=== PATIENT | female | born 1965 | race Caucasian/White ===

== ENCOUNTER 2019-09-06 12:04 | Emergency (ER) | payer MEDICARE, MEDICAID ==
[~2019-09-06] VITALS: Ht 149.9 cm; Wt 83.0 kg
[~2019-09-06 12:04] MED LIST: ALBU8.5H8 IH; BACL10TA2 PO; BUPR100T16 PO; CEFU500T66 PO; CLON-527 PO; ENAL20TA75 PO; GABA-532 PO; HYDR-4383 PO; PANT-47 PO; PROP20TA6 PO; SERT100T10 PO; SPIIN INH; SYMBICORT 160-4.5 IH
[2019-09-06] MEDS ORDERED: ipratropium/albuterol 3ml nebule NEB ONE (12:30)
[2019-09-06] MEDS ORDERED: predniSONE 20 mg tablet PO ONE (12:30)
[2019-09-06] MEDS ORDERED: AZIT-21 PO (13:16)
[2019-09-06] MEDS ORDERED: PRED20TA PO (13:16)
[2019-09-06] MEDS ORDERED: ALB0.5UD IH (13:16)
[2019-09-06 13:22] VITALS: BP 148/98
== END 2019-09-06 13:24 | disposition home or self-care (01) ==
LOC: ER 12:06
DX: J44.1 Chronic obstructive pulmonary disease with (acute) exacerbation (principal); F17.200 Nicotine dependence, unspecified, uncomplicated; E78.00 Pure hypercholesterolemia, unspecified; I10 Essential (primary) hypertension; F12.90 Cannabis use, unspecified, uncomplicated; Z88.0 Allergy status to penicillin; Z88.2 Allergy status to sulfonamides; Z88.5 Allergy status to narcotic agent; Z79.899 Other long term (current) drug therapy
CPT/HCPCS: 71045; 93005; 94640; 99284; J7512; 94760

== ENCOUNTER 2023-03-13 13:51 | Emergency (ER) | payer MEDICARE, MEDICAID ==
[~2023-03-13] VITALS: Ht 149.9 cm; Wt 71.9 kg
[~2023-03-13 13:51] MED LIST changes: +ALBU8.5H17 IH; -ALBU8.5H8 IH; +BUPR-122 PO; -BUPR100T16 PO; +SERT-434 PO; -SERT100T10 PO
[2023-03-13 14:16] VITALS: PULSE 86; RESP 18; TEMP 97.8; O2SAT 95
[2023-03-13 14:21] VITALS: BP 186/111
[2023-03-13 14:51] LABS: BASOPHILS # (AUTO) 0.1 X10'3 (0-0.2); BASOPHILS % (AUTO) 0.7 % (0-1); EOSINOPHILS # (AUTO) 0.7 X10'3 (0-0.9); EOSINOPHILS % (AUTO) 6.6 % (0-6); HEMATOCRIT 45.6 % (35.0-45.0); HEMOGLOBIN 15.1 g/dl (12.0-16.0); LYMPHOCYTES # (AUTO) 2.4 X10'3 (1.1-4.8); LYMPHOCYTES % (AUTO) 21.8 % (21-51); MEAN CORPUSCULAR HEMOGLOBIN 28.4 PG (27.0-31.0); MEAN CORPUSCULAR HGB CONC 33.1 g/dL (33.0-36.5); MEAN CORPUSCULAR VOLUME 85.8 FL (78-98); MEAN PLATELET VOLUME 7.5 FL (7.4-10.4); MONOCYTES # (AUTO) 0.9 X10'3 (0-0.9); MONOCYTES % (AUTO) 8.1 % (2-12); NEUTROPHILS % (AUTO) 62.8 % (42-75); PLATELET COUNT 315 X10'3 (140-440); RED BLOOD COUNT 5.31 X10'6 (4.20-5.60); RED CELL DISTRIBUTION WIDTH 13.2 % (11.5-14.5); WHITE BLOOD COUNT 11.2 X10'3 (4.5-11.0)
[2023-03-13 15:05] LABS: ALANINE AMINOTRANSFERASE 18 U/L (12-78); ALBUMIN 3.7 G/DL (3.4-5.0); ALKALINE PHOSPHATASE 127 IU/L (46-116); ANION GAP 6 (8-16); ASPARTATE AMINO TRANSFERASE 14 U/L (10-37); BILIRUBIN,TOTAL 0.3 MG/DL (0.1-1.0); BLOOD UREA NITROGEN 9 MG/DL (7-18); BUN/CREATININE RATIO 14.3 (10.0-20.0); CALCIUM 9.1 MG/DL (8.5-10.1); CHLORIDE 104 MMOL/L (99-107); CREATININE 0.63 MG/DL (0.40-0.90); GLUCOSE 99 MG/DL (70-104); POTASSIUM 4.1 MMOL/L (3.5-5.1); SODIUM 138 MMOL/L (135-145); TOTAL PROTEIN 7.3 G/DL (6.4-8.2); eCRCL 67 ML/MIN; eGFR > 90 ML/MIN
[2023-03-13 15:12] LABS: PRO BRAIN NATRIURETIC PEPTIDE 150 PG/ML (0-125)
== END 2023-03-13 19:41 | disposition left against medical advice (07) ==
LOC: ER 13:52
DX: R06.02 Shortness of breath (principal); R05.9 Cough, unspecified; R09.81 Nasal congestion; Z53.21 Procedure and treatment not carried out due to patient leaving prior to being seen by health care provider
CPT/HCPCS: 36415; 71045; 80053; 83880; 84484; 85025; 93005; 99281

== ENCOUNTER 2023-07-13 13:59 | Emergency (ER) | payer MEDICARE, MEDICAID ==
[~2023-07-13] VITALS: Ht 149.9 cm; Wt 78.6 kg
[~2023-07-13 13:59] MED LIST changes: +ALBU18HF2 INH; -ALBU8.5H17 IH; -BACL10TA2 PO; +BUDE10.2 INH; -BUPR-122 PO; +BUPR150T27 PO; -CEFU500T66 PO; -CLON-527 PO; +CLON1TAB94 PO; -ENAL20TA75 PO; +FLUT16SP26 INH; -GABA-532 PO; -HYDR-4383 PO; +IPRA3AMP9 NEB; +LACT1CAP74 PO; +LORA10TA7 PO; +LOSA50TA64 PO; +LOVA40TA2 PO; -PANT-47 PO; +PANT40TA54 PO; +PRED10TA PO; -SPIIN INH; -SYMBICORT 160-4.5 IH
[2023-07-13 14:03] VITALS: BP 160/107; PULSE 108; RESP 19; O2SAT 93
[2023-07-13 14:30] LABS: BASOPHILS % (AUTO) 0.6 % (0-1); EOSINOPHILS # (AUTO) 0.6 X10'3 (0-0.9); EOSINOPHILS % (AUTO) 7.5 % (0-6); HEMATOCRIT 42.4 % (35.0-45.0); HEMOGLOBIN 14.2 g/dl (12.0-16.0); LYMPHOCYTES # (AUTO) 1.6 X10'3 (1.1-4.8); LYMPHOCYTES % (AUTO) 19.4 % (21-51); MEAN CORPUSCULAR HEMOGLOBIN 28.2 PG (27.0-31.0); MEAN CORPUSCULAR HGB CONC 33.6 g/dL (33.0-36.5); MEAN CORPUSCULAR VOLUME 83.9 FL (78-98); MEAN PLATELET VOLUME 7.4 FL (7.4-10.4); MONOCYTES # (AUTO) 0.8 X10'3 (0-0.9); MONOCYTES % (AUTO) 9.7 % (2-12); NEUTROPHILS # (AUTO) 5.1 X10'3 (1.8-7.7); NEUTROPHILS % (AUTO) 62.8 % (42-75); PLATELET COUNT 239 X10'3 (140-440); RED BLOOD COUNT 5.05 X10'6 (4.20-5.60); RED CELL DISTRIBUTION WIDTH 13.7 % (11.5-14.5); WHITE BLOOD COUNT 8.2 X10'3 (4.5-11.0)
[2023-07-13 14:48] LABS: ALBUMIN 3.6 G/DL (3.4-5.0); ANION GAP 10 (8-16); BLOOD UREA NITROGEN 15 MG/DL (7-18); BUN/CREATININE RATIO 18.5 (10.0-20.0); CALCIUM 8.4 MG/DL (8.5-10.1); CHLORIDE 109 MMOL/L (99-107); CREATININE 0.81 MG/DL (0.40-0.90); GLUCOSE 121 MG/DL (70-104); SODIUM 144 MMOL/L (135-145); TOTAL CARBON DIOXIDE 25.1 MMOL/L (24-32); eCRCL 52 ML/MIN; eGFR 73 ML/MIN
[2023-07-13 17:21] VITALS: TEMP 98.1
== END 2023-07-13 17:22 | disposition left against medical advice (07) ==
LOC: ER 14:00
DX: R06.02 Shortness of breath (principal); Z53.21 Procedure and treatment not carried out due to patient leaving prior to being seen by health care provider
CPT/HCPCS: 36415; 71045; 80048; 84484; 85025; 93005; 99281

== ENCOUNTER 2023-07-26 05:11 | Inpatient (IN) | payer MEDICARE, MEDICAID ==
[2023-07-26] VITALS (18 sets, daily range): BP systolic 135–167; BP diastolic 84–87; PULSE 86–114; RESP 16–30; TEMP 97.5; O2SAT 89–98
[~2023-07-26] VITALS: Ht 149.9 cm; Wt 70.0 kg
[2023-07-26] MEDS: albuterol 2.5 MG/3 ML nebule CONTNEB PRN (05:23)
[2023-07-26] MEDS: methylPREDNISolone sod succ 125mg/2ml vial IV ONE (05:28)
[2023-07-26] MEDS: LORazepam 2 mg/ml vial IV ONE (05:37)
[2023-07-26 06:06] LABS: BASOPHILS # (AUTO) 0.2 X10'3 (0-0.2); BASOPHILS % (AUTO) 0.9 % (0-1); HEMATOCRIT 44.9 % (35.0-45.0); HEMOGLOBIN 14.8 g/dl (12.0-16.0); LYMPHOCYTES # (AUTO) 4.5 X10'3 (1.1-4.8); MEAN CORPUSCULAR HEMOGLOBIN 28.3 PG (27.0-31.0); MEAN CORPUSCULAR HGB CONC 33.1 g/dL (33.0-36.5); MEAN CORPUSCULAR VOLUME 85.7 FL (78-98); MONOCYTES # (AUTO) 2.1 X10'3 (0-0.9); MONOCYTES % (AUTO) 7.4 % (2-12); NEUTROPHILS # (AUTO) 19.4 X10'3 (1.8-7.7); NEUTROPHILS % (AUTO) 68.7 % (42-75); PLATELET COUNT 456 X10'3 (140-440); RED BLOOD COUNT 5.24 X10'6 (4.20-5.60)
[2023-07-26 06:11] LABS: ALBUMIN 3.7 G/DL (3.4-5.0); ANION GAP 1 (8-16); BLOOD UREA NITROGEN 15 MG/DL (7-18); BUN/CREATININE RATIO 16.9 (10.0-20.0); CALCIUM 8.3 MG/DL (8.5-10.1); CHLORIDE 104 MMOL/L (99-107); CREATININE 0.89 MG/DL (0.40-0.90); GLUCOSE 226 MG/DL (70-104); SODIUM 139 MMOL/L (135-145); TOTAL CARBON DIOXIDE 34.1 MMOL/L (24-32); eCRCL 62 ML/MIN; eGFR 65 ML/MIN
[2023-07-26 06:18] LABS: WHITE BLOOD COUNT 28.2 X10'3 (4.5-11.0)
[2023-07-26 06:31] LABS: PRO BRAIN NATRIURETIC PEPTIDE 333 PG/ML (0-125)
[2023-07-26] MEDS: normal saline 1000ML IV soln IVB ONE (06:32)
[2023-07-26] MEDS: azithromycin/NS 500mg/250ml 250 ML IV ONE (06:33)
[2023-07-26 07:13] LABS: PLATELET ESTIMATE INCREASED; TOTAL CELLS COUNTED 100
[2023-07-26] MEDS ORDERED: acetaminophen 325mg tablet PO PRN (07:15)
[2023-07-26] MEDS ORDERED: potassium Cl 20 mEq SR tablet PO PRN ×2 (07:15)
[2023-07-26] MEDS ORDERED: magnesium 4gm in 100ml NS 100 ML IV PRN (07:15)
[2023-07-26] MEDS ORDERED: ondansetron/PF 4mg/2ml inj IV PRN (07:15)
[2023-07-26] MEDS ORDERED: magnesium 2GM in 50ml NS 50 ML IV PRN (07:15)
[2023-07-26] MEDS ORDERED: potassium Cl 40MEQ/1/2NS 520ml 520 ML IV PRN (07:15)
[2023-07-26] MEDS ORDERED: magnesium Cl slow-release 64mg tablet PO PRN (07:15)
[2023-07-26 07:52] LABS: ABG BASE EXCESS -2.8 mmol/L (-2.0-2.0); ABG HCO3 27.6 mmol/L (22.0-26.0); ABG OXYGEN SATURATION 97.7 % (94-97); ABG PH (T) 7.178 (7.350-7.450); ABG PO2 (T) 117.6 mmHg (75.0-100.0); ALLEN'S TEST POSITIVE; FCOHb 0.2 % (0.0-3.9); FHHb 2.3 % (0.0-5.0); FLOW 9 L/min; FMetHb 0.4 % (0.0-1.5); FO2Hb 97.1 % (94-97); MODE MASK - SIMPLE; PATIENT TEMPERATURE 37.1; TOTAL HEMOGLOBIN 14.3 G/dl (12.0-16.0)
[2023-07-26] MEDS: albuterol 2.5 MG/3 ML nebule NEB SCH (08:00)
[2023-07-26] MEDS: methylPREDNISolone sod succ 125mg/2ml vial IV SCH (09:30)
[2023-07-26] MEDS: levoFLOXACIN-Levaquin 500mg/D5 100 ML IV SCH (09:31)
[2023-07-26] MEDS: heparin, porcine 5000 units/ml vial SQ SCH (09:31)
[2023-07-26] MEDS: normal saline 1000ml 1,000 ML IV SCH (09:39)
[2023-07-26 10:04] LABS: ABG BASE EXCESS -2.3 mmol/L (-2.0-2.0); ABG HCO3 26.5 mmol/L (22.0-26.0); ABG OXYGEN SATURATION 96.8 % (94-97); ABG PCO2 (T) 64.4 mmHg (32.0-45.0); ABG PH (T) 7.233 (7.350-7.450); ABG PO2 (T) 98.7 mmHg (75.0-100.0); ALLEN'S TEST POSITIVE; FCOHb 0.3 % (0.0-3.9); FHHb 3.2 % (0.0-5.0); FMetHb 0.4 % (0.0-1.5); FO2Hb 96.1 % (94-97); MODE MASK - BIPAP; PATIENT TEMPERATURE 37.1; RESPIRATORY RATE 14 b/min; TIDAL VOLUME 487 mL; TOTAL HEMOGLOBIN 13.6 G/dl (12.0-16.0)
[2023-07-26] MEDS ORDERED: albuterol 2.5 MG/3 ML nebule NEB PRN (10:10)
[2023-07-26] MEDS: ipratropium/albuterol 3ml nebule NEB SCH (11:43)
[2023-07-26] MEDS ORDERED: nicotine 14mg patch - 24hr TD SCH (20:30)
[2023-07-26] MEDS ORDERED: temazepam 15mg capsule PO PRN (21:00)
[2023-07-26] MEDS: acetaminophen 325mg tablet PO PRN (21:04)
[2023-07-27] VITALS (20 sets, daily range): BP systolic 141–179; BP diastolic 93–103; PULSE 81–103; RESP 16–33; TEMP 97.4–98.3; O2SAT 92–97
[2023-07-27 07:22] LABS: BASOPHILS % (AUTO) 0.4 % (0-1); EOSINOPHILS % (AUTO) 0.3 % (0-6); HEMATOCRIT 38.6 % (35.0-45.0); HEMOGLOBIN 12.9 g/dl (12.0-16.0); LYMPHOCYTES # (AUTO) 2.1 X10'3 (1.1-4.8); MEAN CORPUSCULAR HEMOGLOBIN 28.1 PG (27.0-31.0); MEAN CORPUSCULAR HGB CONC 33.3 g/dL (33.0-36.5); MEAN CORPUSCULAR VOLUME 84.3 FL (78-98); MEAN PLATELET VOLUME 7.7 FL (7.4-10.4); MONOCYTES # (AUTO) 0.9 X10'3 (0-0.9); MONOCYTES % (AUTO) 7.9 % (2-12); NEUTROPHILS # (AUTO) 8.4 X10'3 (1.8-7.7); NEUTROPHILS % (AUTO) 73.4 % (42-75); PLATELET COUNT 248 X10'3 (140-440); RED BLOOD COUNT 4.58 X10'6 (4.20-5.60); RED CELL DISTRIBUTION WIDTH 13.6 % (11.5-14.5); WHITE BLOOD COUNT 11.4 X10'3 (4.5-11.0)
[2023-07-27 07:35] LABS: ALANINE AMINOTRANSFERASE 14 U/L (12-78); ALBUMIN 3.2 G/DL (3.4-5.0); ALBUMIN/GLOBULIN RATIO 0.9 (1.1-1.5); ALKALINE PHOSPHATASE 91 IU/L (46-116); ANION GAP 3 (8-16); ASPARTATE AMINO TRANSFERASE 14 U/L (10-37); BILIRUBIN,TOTAL 0.3 MG/DL (0.1-1.0); BLOOD UREA NITROGEN 14 MG/DL (7-18); BUN/CREATININE RATIO 21.2 (10.0-20.0); CALCIUM 8.5 MG/DL (8.5-10.1); CHLORIDE 105 MMOL/L (99-107); CREATININE 0.66 MG/DL (0.40-0.90); GLUCOSE 128 MG/DL (70-104); POTASSIUM 3.7 MMOL/L (3.5-5.1); SODIUM 140 MMOL/L (135-145); TOTAL CARBON DIOXIDE 32.2 MMOL/L (24-32); TOTAL PROTEIN 6.9 G/DL (6.4-8.2); eCRCL 63 ML/MIN; eGFR > 90 ML/MIN
[2023-07-27] MEDS: losartan 50mg tablet PO SCH (09:01)
[2023-07-27] MEDS: pantoprazole 40mg Tablet.DR PO SCH (09:02)
[2023-07-27] MEDS: sertraline 50mg tablet PO SCH (09:02)
[2023-07-27] MEDS: propranolol 10mg tablet PO SCH (09:02)
[2023-07-27] MEDS: atorvastatin 10mg tablet PO SCH (09:02)
[2023-07-27] MEDS: buPROPion SR 150mg tablet PO SCH (09:02)
[2023-07-28] VITALS (18 sets, daily range): BP systolic 126–159; BP diastolic 89–112; PULSE 78–104; RESP 14–21; TEMP 97–98.4; O2SAT 92–100
[2023-07-28 07:45] LABS: BASOPHILS # (AUTO) 0.1 X10'3 (0-0.2); EOSINOPHILS # (AUTO) 0.1 X10'3 (0-0.9); EOSINOPHILS % (AUTO) 0.5 % (0-6); HEMATOCRIT 40.4 % (35.0-45.0); HEMOGLOBIN 13.4 g/dl (12.0-16.0); LYMPHOCYTES # (AUTO) 2.4 X10'3 (1.1-4.8); LYMPHOCYTES % (AUTO) 21.2 % (21-51); MEAN CORPUSCULAR HGB CONC 33.1 g/dL (33.0-36.5); MEAN CORPUSCULAR VOLUME 84.7 FL (78-98); MEAN PLATELET VOLUME 7.8 FL (7.4-10.4); MONOCYTES # (AUTO) 0.9 X10'3 (0-0.9); MONOCYTES % (AUTO) 8.3 % (2-12); NEUTROPHILS # (AUTO) 7.7 X10'3 (1.8-7.7); PLATELET COUNT 237 X10'3 (140-440); RED BLOOD COUNT 4.77 X10'6 (4.20-5.60); RED CELL DISTRIBUTION WIDTH 13.8 % (11.5-14.5); WHITE BLOOD COUNT 11.2 X10'3 (4.5-11.0)
[2023-07-28 08:21] LABS: ALANINE AMINOTRANSFERASE 18 U/L (12-78); ALBUMIN 3.1 G/DL (3.4-5.0); ALBUMIN/GLOBULIN RATIO 0.8 (1.1-1.5); ALKALINE PHOSPHATASE 89 IU/L (46-116); ANION GAP 7 (8-16); BILIRUBIN,TOTAL 0.3 MG/DL (0.1-1.0); BLOOD UREA NITROGEN 16 MG/DL (7-18); CALCIUM 8.6 MG/DL (8.5-10.1); CHLORIDE 103 MMOL/L (99-107); GLUCOSE 97 MG/DL (70-104); SODIUM 139 MMOL/L (135-145); TOTAL CARBON DIOXIDE 29.5 MMOL/L (24-32); eCRCL 84 ML/MIN; eGFR > 90 ML/MIN
[2023-07-28 08:22] LABS: ASPARTATE AMINO TRANSFERASE 20 U/L (10-37)
[2023-07-28] MEDS: clonazePAM 1mg tablet PO PRN (13:09)
[2023-07-29] VITALS (10 sets, daily range): BP systolic 128–133; BP diastolic 84–94; PULSE 73–94; RESP 12–19; TEMP 97.1–98.1; O2SAT 91–95
[2023-07-29 07:25] LABS: BASOPHILS # (AUTO) 0.1 X10'3 (0-0.2); BASOPHILS % (AUTO) 0.5 % (0-1); EOSINOPHILS # (AUTO) 0.1 X10'3 (0-0.9); EOSINOPHILS % (AUTO) 0.5 % (0-6); HEMATOCRIT 41.9 % (35.0-45.0); HEMOGLOBIN 14.3 g/dl (12.0-16.0); LYMPHOCYTES # (AUTO) 2.7 X10'3 (1.1-4.8); LYMPHOCYTES % (AUTO) 20.7 % (21-51); MEAN CORPUSCULAR HEMOGLOBIN 28.5 PG (27.0-31.0); MEAN CORPUSCULAR HGB CONC 34.1 g/dL (33.0-36.5); MEAN CORPUSCULAR VOLUME 83.5 FL (78-98); MEAN PLATELET VOLUME 7.9 FL (7.4-10.4); MONOCYTES # (AUTO) 1.2 X10'3 (0-0.9); MONOCYTES % (AUTO) 9.5 % (2-12); NEUTROPHILS # (AUTO) 8.9 X10'3 (1.8-7.7); NEUTROPHILS % (AUTO) 68.8 % (42-75); PLATELET COUNT 267 X10'3 (140-440); RED BLOOD COUNT 5.02 X10'6 (4.20-5.60); RED CELL DISTRIBUTION WIDTH 13.8 % (11.5-14.5); WHITE BLOOD COUNT 12.9 X10'3 (4.5-11.0)
[2023-07-29 07:34] LABS: ALANINE AMINOTRANSFERASE 12 U/L (12-78); ALBUMIN 3.3 G/DL (3.4-5.0); ALBUMIN/GLOBULIN RATIO 0.8 (1.1-1.5); ALKALINE PHOSPHATASE 86 IU/L (46-116); ANION GAP 7 (8-16); ASPARTATE AMINO TRANSFERASE 10 U/L (10-37); BILIRUBIN,TOTAL 0.3 MG/DL (0.1-1.0); BLOOD UREA NITROGEN 20 MG/DL (7-18); BUN/CREATININE RATIO 37.7 (10.0-20.0); CHLORIDE 103 MMOL/L (99-107); CREATININE 0.53 MG/DL (0.40-0.90); GLUCOSE 95 MG/DL (70-104); POTASSIUM 3.6 MMOL/L (3.5-5.1); SODIUM 138 MMOL/L (135-145); TOTAL CARBON DIOXIDE 28.2 MMOL/L (24-32); TOTAL PROTEIN 7.2 G/DL (6.4-8.2); eCRCL 79 ML/MIN; eGFR > 90 ML/MIN
[2023-07-29] MEDS: levoFLOXACIN 500mg tablet PO SCH (10:32)
[2023-07-29] MEDS ORDERED: PANT40TA54 PO (16:12)
[2023-07-29] MEDS ORDERED: ALBU2.5V7 NEB (16:12)
[2023-07-29] MEDS ORDERED: PRED10TA23 PO (16:12)
[2023-07-29] MEDS ORDERED: NEBU1KIT3 MC (16:18)
== END 2023-07-29 16:34 | disposition home or self-care (01) | DRG 189 ==
LOC: ER 05:11 → ED HOLD 07:19 → PCU 3S 19:10
PROVIDERS: ADMIT Internal Medicine; ATTEND Internal Medicine
PROC: 5A09357 Assistance with Respiratory Ventilation, Less than 24 Consecutive Hours, Continuous Positive Airway Pressure (ICD-10-PCS; principal; 2023-07-26)
DX: J96.02 Acute respiratory failure with hypercapnia (principal); J44.1 Chronic obstructive pulmonary disease with (acute) exacerbation; I10 Essential (primary) hypertension; K21.9 Gastro-esophageal reflux disease without esophagitis; E78.00 Pure hypercholesterolemia, unspecified; Z20.822 Contact with and (suspected) exposure to COVID-19; F32.A Depression, unspecified; Z80.8 Family history of malignant neoplasm of other organs or systems; Z80.0 Family history of malignant neoplasm of digestive organs; Z87.891 Personal history of nicotine dependence; Z88.0 Allergy status to penicillin; Z88.2 Allergy status to sulfonamides; Z88.5 Allergy status to narcotic agent; Z79.899 Other long term (current) drug therapy
CPT/HCPCS: 36415; 36600; 71045; 80048; 80053; 82803; 83605; 83880; 84145; 84484; 85007; 85018; 85025; 85651; 87040; 87081; 87502; 87503; 87811; 93005; 94640; 94660; 94664; 94668; 94760; 96365; 96375; 97116; 97161; 97530; 99285; A4615; A4620; A7015; G0378; J0456; J1644; J1956; J2060; J2930; J7030

== ENCOUNTER 2024-02-14 16:16 | Emergency (ER) | payer MEDICARE, MEDICAID ==
[~2024-02-14] VITALS: Ht 149.9 cm; Wt 79.8 kg
[~2024-02-14 16:16] MED LIST changes: -BUDE10.2 INH; +DILT30TA5 PO; -LACT1CAP74 PO; +PANT-47 PO; -PANT40TA54 PO; -PRED10TA PO
[2024-02-14 17:18] LABS: BASOPHILS # (AUTO) 0.1 X10'3 (0-0.2); BASOPHILS % (AUTO) 0.5 % (0-1); EOSINOPHILS # (AUTO) 0.5 X10'3 (0-0.9); HEMATOCRIT 37.9 % (35.0-45.0); HEMOGLOBIN 12.3 g/dl (12.0-16.0); LYMPHOCYTES # (AUTO) 1.9 X10'3 (1.1-4.8); LYMPHOCYTES % (AUTO) 19.2 % (21-51); MEAN CORPUSCULAR HEMOGLOBIN 26.1 PG (27.0-31.0); MEAN CORPUSCULAR HGB CONC 32.5 g/dL (33.0-36.5); MEAN CORPUSCULAR VOLUME 80.4 FL (78-98); MEAN PLATELET VOLUME 7.9 FL (7.4-10.4); MONOCYTES # (AUTO) 0.9 X10'3 (0-0.9); MONOCYTES % (AUTO) 9.1 % (2-12); NEUTROPHILS # (AUTO) 6.6 X10'3 (1.8-7.7); NEUTROPHILS % (AUTO) 66.2 % (42-75); PLATELET COUNT 272 X10'3 (140-440); RED BLOOD COUNT 4.71 X10'6 (4.20-5.60); RED CELL DISTRIBUTION WIDTH 15.3 % (11.5-14.5)
[2024-02-14 17:32] LABS: ALBUMIN 3.4 G/DL (3.4-5.0); ANION GAP 4 (8-16); BLOOD UREA NITROGEN 12 MG/DL (7-18); BUN/CREATININE RATIO 15.4 (10.0-20.0); CALCIUM 8.3 MG/DL (8.5-10.1); CHLORIDE 103 MMOL/L (99-107); CREATININE 0.78 MG/DL (0.40-0.90); POTASSIUM 3.9 MMOL/L (3.5-5.1); SODIUM 138 MMOL/L (135-145); TOTAL CARBON DIOXIDE 30.8 MMOL/L (24-32); eCRCL 54 ML/MIN; eGFR 76 ML/MIN
[2024-02-14 18:04] LABS: PRO BRAIN NATRIURETIC PEPTIDE 88 PG/ML (0-125)
[2024-02-14 18:32] LABS: GLUCOSE 119 MG/DL (70-104)
[2024-02-14] MEDS: ipratropium/albuterol 3ml nebule NEB PRN ×2 (21:29→23:53)
[2024-02-14 21:32] VITALS: PULSE 97; RESP 18; O2SAT 95
[2024-02-14 21:35] VITALS: PULSE 92; RESP 18; O2SAT 100
[2024-02-14] MEDS: normal saline 1000ml 1,000 ML IV ONE (21:57)
[2024-02-14] MEDS: methylPREDNISolone sod succ 125mg/2ml vial IV ONE (21:57)
[2024-02-14 22:00] LABS: BASOPHILS # (AUTO) 0.1 X10'3 (0-0.2); BASOPHILS % (AUTO) 0.5 % (0-1); EOSINOPHILS # (AUTO) 0.5 X10'3 (0-0.9); EOSINOPHILS % (AUTO) 4.6 % (0-6); HEMATOCRIT 35.2 % (35.0-45.0); HEMOGLOBIN 11.4 g/dl (12.0-16.0); LYMPHOCYTES # (AUTO) 2.3 X10'3 (1.1-4.8); LYMPHOCYTES % (AUTO) 22.6 % (21-51); MEAN CORPUSCULAR HEMOGLOBIN 25.9 PG (27.0-31.0); MEAN CORPUSCULAR HGB CONC 32.4 g/dL (33.0-36.5); MEAN CORPUSCULAR VOLUME 79.8 FL (78-98); MEAN PLATELET VOLUME 7.5 FL (7.4-10.4); MONOCYTES # (AUTO) 0.9 X10'3 (0-0.9); NEUTROPHILS # (AUTO) 6.3 X10'3 (1.8-7.7); NEUTROPHILS % (AUTO) 63.3 % (42-75); PLATELET COUNT 228 X10'3 (140-440); RED BLOOD COUNT 4.41 X10'6 (4.20-5.60); RED CELL DISTRIBUTION WIDTH 15.2 % (11.5-14.5)
[2024-02-14 22:12] LABS: ALANINE AMINOTRANSFERASE 26 U/L (12-78); ALBUMIN 3.4 G/DL (3.4-5.0); ALBUMIN/GLOBULIN RATIO 1.1 (1.1-1.5); ALKALINE PHOSPHATASE 108 IU/L (46-116); ANION GAP 6 (8-16); ASPARTATE AMINO TRANSFERASE 21 U/L (10-37); BILIRUBIN,TOTAL 0.3 MG/DL (0.1-1.0); BLOOD UREA NITROGEN 11 MG/DL (7-18); BUN/CREATININE RATIO 15.1 (10.0-20.0); CALCIUM 8.4 MG/DL (8.5-10.1); CHLORIDE 102 MMOL/L (99-107); CREATININE 0.73 MG/DL (0.40-0.90); GLUCOSE 83 MG/DL (70-104); SODIUM 137 MMOL/L (135-145); TOTAL CARBON DIOXIDE 28.8 MMOL/L (24-32); TOTAL PROTEIN 6.4 G/DL (6.4-8.2); eCRCL 57 ML/MIN; eGFR 82 ML/MIN
[2024-02-14 22:15] LABS: POTASSIUM 3.8 MMOL/L (3.5-5.1)
[2024-02-14 23:53] VITALS: TEMP 97.6
[2024-02-14 23:55] VITALS: PULSE 102; RESP 18; O2SAT 97
[2024-02-15] VITALS: PULSE 99; RESP 18; O2SAT 99
[2024-02-15] MEDS ORDERED: PRED50TA PO (00:35)
[2024-02-15] MEDS ORDERED: IPRA3AMP31 NEB (00:35)
[2024-02-15 00:46] VITALS: BP 124/90; PULSE 102; RESP 14; O2SAT 95
== END 2024-02-15 00:49 | disposition home or self-care (01) ==
LOC: ER 16:17
DX: J44.1 Chronic obstructive pulmonary disease with (acute) exacerbation (principal); E78.00 Pure hypercholesterolemia, unspecified; I10 Essential (primary) hypertension; J45.909 Unspecified asthma, uncomplicated; F32.A Depression, unspecified; Z88.0 Allergy status to penicillin; Z88.2 Allergy status to sulfonamides; Z88.8 Allergy status to other drugs, medicaments and biological substances; Z79.899 Other long term (current) drug therapy
CPT/HCPCS: 36415; 71046; 80048; 80053; 83605; 83880; 85025; 94640; 96361; 96374; 99284; J2919; J7030; Z7610

== ENCOUNTER 2024-05-04 12:08 | Emergency (ER) | payer MEDICARE, MEDICAID ==
[~2024-05-04] VITALS: Ht 149.9 cm; Wt 77.0 kg
[~2024-05-04 12:08] MED LIST changes: +GUAI600T45 PO; -IPRA3AMP9 NEB; +PRED10TA PO; -PROP20TA6 PO
[2024-05-04 12:13] VITALS: TEMP 98
[2024-05-04] MEDS: traMADol 50MG tablet PO ONE (15:16)
[2024-05-04] MEDS: LIDOcaine 5% patch TP STA (15:19)
[2024-05-04] MEDS ORDERED: TRAM50TA2 PO (15:26)
[2024-05-04 15:41] VITALS: BP 120/88; PULSE 103; RESP 20; O2SAT 95
== END 2024-05-04 15:47 | disposition home or self-care (01) ==
LOC: ER 12:09
DX: G89.29 Other chronic pain (principal); M54.59 Other low back pain; F32.A Depression, unspecified; I10 Essential (primary) hypertension; E78.00 Pure hypercholesterolemia, unspecified; J45.909 Unspecified asthma, uncomplicated; J44.9 Chronic obstructive pulmonary disease, unspecified; Z88.0 Allergy status to penicillin; Z88.2 Allergy status to sulfonamides; Z88.5 Allergy status to narcotic agent; Z79.899 Other long term (current) drug therapy
CPT/HCPCS: 72100; 99284

== ENCOUNTER 2024-07-23 09:57 | Outpatient (CLI) | payer MEDICARE, MEDICAID | END 2024-07-23 23:59 | disposition home or self-care (01) | LOC: RAD 09:57 | PROVIDERS: ATTEND Physician Assistant | DX: Z12.2 Encounter for screening for malignant neoplasm of respiratory organs (principal); J43.9 Emphysema, unspecified; Z87.891 Personal history of nicotine dependence; J98.4 Other disorders of lung; J98.11 Atelectasis | CPT/HCPCS: 71271 ==

== ENCOUNTER 2024-09-12 12:39 | Emergency (ER) | payer MEDICARE, MEDICAID ==
[~2024-09-12] VITALS: Ht 149.9 cm; Wt 80.2 kg
[2024-09-12 12:47] VITALS: TEMP 99
--- NOTE | 2024-09-12 15:18 | Physician Documentation ---
History of Present Illness ~ Chief Complaint: Hand pain Stated Complaint: L HAND SWELLING Time Seen by MD: 13:42 Primary Medical Doctor: YINKA HERBERT The patient is Seen today with complaints of swelling and redness and warmth of her left wrist that started just yesterday. Patient denies any injury to the wrist and denies any history of gout. Patient states she feels like she got bit by something. Patient has no other concern or complaint at this time. She states the left wrist is very painful. She denies any fevers or chills. Tetanus within 5 years: Yes (2022) Medication Reconciliation Allergies: Coded Allergies: Penicillins (Verified Allergy, Unknown, 05/04/24) Sulfa (Sulfonamide Antibiotics) (Verified Adverse Reaction, Unknown, UPSET STOMACH, 05/04/24) morphine (Verified Adverse Reaction, Unknown, MIGRAINE, 05/04/24) Scheduled Bupropion HCl (Bupropion Xl), 1 TAB PO QAM, (Reported) Clindamycin HCl (Clindamycin HCl), 1 CAP PO Q8H Clonazepam (Clonazepam), 1 TAB PO BID Diltiazem HCl (Diltiazem HCl), 1 TAB PO BID, (Reported) Guaifenesin (Mucinex), 600 MG PO Q12H Ibuprofen (Ibuprofen), 1 TAB PO Q8H Loratadine (Loratadine), 1 TAB PO DAILY, (Reported) Losartan Potassium (Losartan Potassium), 1 TAB PO BID, (Reported) Lovastatin (Lovastatin), 1 TAB PO DAILY, (Reported) Pantoprazole Sodium (PROTONIX tablet), 1 TAB PO DAILY, (Reported) Prednisone (Prednisone), 0 PO DAILY Sertraline HCl (Sertraline HCl), 200 MG PO DAILY, (Reported) Scheduled PRN Albuterol Sulfate (Ventolin Hfa), 2 PUFFS INH Q4H PRN for SOB or wheezing, (Reported) Fluticasone Propionate (Fluticasone Propionate), 1 PUFF INH Q12H PRN for SOB or wheezing, (Reported) Hydrocodone Bit/Acetaminophen 5/325 MG ([place] 5/325 MG), 1 TAB PO Q12H PRN PRN for pain Past Medical History Past Medical History: High Cholesterol, Hypertension, Asthma, COPD, Depression Past Surgical History: no surgical history Patient History: FH: pancreatic cancer (Mother and sister ) FH: throat cancer (Brother) Alcohol Use: Rarely Drug Use: none Lives with: Family Lives In: Home Review of Systems Constitutional: Denies: chills, fever, weakness Eyes: Denies: pain, blurred vision ENT: Denies: ear pain, nose pain, throat pain, mouth pain Respiratory: Denies: cough, shortness of breath Cardiovascular: Denies: chest pain, palpitations Gastrointestinal: Denies: abdominal pain, nausea, vomiting Genitourinary: Denies: burning, dysuria Female Genitalia: Denies: vaginal discharge, pelvic pain Neurological: Denies: headache, dizziness Musculoskeletal: Denies: pain, swelling Integumentary: Denies: rash, lesions Allergic/Immunologic: Denies: hives, itching Hematologic/Lymphatic: Denies: no symptoms reported Psychiatric: Denies: depression, anxiety Physical Exam Vital Signs: Temperature: 99.0, Source: Oral, Heart Rate: 112, Respiratory Rate: 16, BP: 140/109, Pulse Oximetry: 94, Weight: 80.200 Oxygen Flow Rate: 0 Physical Exam General: Awake and Alert, no acute distress. HEENT: Conjunctiva pink, Sclera clear, Mucus Membranes moist. Neck: Supple without masses and tenderness. Resp: Unlabored. Lungs clear to auscultation bilaterally. Heart: Regular Rate and rhythm, normal S1 and S2 without murmur, rub or gallop. Musculoskeletal: Patient on exam has warmth and erythema on dorsum of patient's left wrist with tenderness to palpation. I do not appreciate any streaking or any infection progressing proximally. Patient is neurovascularly intact distally. Motor function is intact distally. Patient does have decreased range of motion of the left wrist due to pain. Extremities: No cyanosis,clubbing or edema. Skin: Warm and Dry. Progress Results/Orders Results/Orders Completed Orders - DILMA MORALES PAC Cbc/Diff (09/12/24 15:14) BMP (09/12/24 15:14) Indomethacin Capsule (Indocin Capsule) (09/12/24 15:15) Clindamycin Capsule (Cleocin Capsule) (09/12/24 15:15) Uric Acid (09/12/24 15:17) Ondansetron Disint. Tablet (Zofran Odt T (09/12/24 16:41) Medications Received in ER Medications (Trade) Dose Ordered Sig/Ayaan Route PRN Reason Start Time Stop Time Status Last Admin Dose Admin (Indocin capsule) 50 mg ONCE STAT PO 09/12/24 15:15 09/12/24 15:19 DC 09/12/24 15:43 50 MG (Cleocin capsule) 300 mg ONCE STAT PO 09/12/24 15:15 09/12/24 15:19 DC 09/12/24 15:43 300 MG (Zofran ODT tablet) 8 mg ONCE STAT PO 09/12/24 16:41 09/12/24 16:42 DC 09/12/24 16:50 8 MG Vital Signs 09/12/24 12:47 Temp 99.0 Pulse 112 Resp 16 B/P (MAP) 140/109 Pulse Ox 94 O2 Flow Rate 0 Laboratory Tests Test 09/12/24 15:24 White Blood Count 11.2 H Red Blood Count 5.09 Hemoglobin 12.2 Hematocrit 38.1 Mean Corpuscular Volume 74.8 L Mean Corpuscular Hemoglobin 24.0 L Mean Corpuscular Hemoglobin Concent 32.1 L Red Cell Distribution Width 16.5 H Platelet Count 315 Mean Platelet Volume 7.4 Neutrophils (%) (Auto) 71.9 Lymphocytes (%) (Auto) 14.9 L Monocytes (%) (Auto) 9.4 Eosinophils (%) (Auto) 3.0 Basophils (%) (Auto) 0.8 Neutrophils # (Auto) 8.1 H Lymphocytes # (Auto) 1.7 Monocytes # (Auto) 1.1 H Eosinophils # (Auto) 0.3 Basophils # (Auto) 0.1 CBC Comment Sodium Level 138 Potassium Level 4.1 Chloride Level 104 Carbon Dioxide Level 25.5 Anion Gap 9 Blood Urea Nitrogen 11 Creatinine 0.63 Estimated GFR/1.73 m2 > 90 BUN/Creatinine Ratio 17.5 Glucose Level 94 Uric Acid 3.9 Calcium Level 8.8 Albumin 3.6 Chemistry Comments Medical Decision Making Findings The patient is Seen today with complaints of swelling and redness and warmth of her left wrist that started just yesterday. Patient denies any injury to the wrist and denies any history of gout. Patient states she feels like she got bit by something. Patient has no other concern or complaint at this time. She states the left wrist is very painful. She denies any fevers or chills. Patient was given dose of indomethacin 50 mg by mouth and clindamycin 300 mg by mouth in the ED today. Prescriptions for clindamycin and Tylenol and ibuprofen and [place] five sent to patient's pharmacy to be used as directed. Patient will monitor left wrist very closely and will return to ED with any fevers or worsening of swelling or redness or pain for re-evaluation. Departure Disposition: 01 HOME / SELF CARE / HOMELESS Impression: Primary Impression: Cellulitis of left wrist Condition: Stable Discharge Instructions: Cellulitis, Adult, [id number] Additional Instructions: Patient was given dose of indomethacin 50 mg by mouth and clindamycin 300 mg by mouth in the ED today. Prescriptions for clindamycin and Tylenol and ibuprofen and [place] five sent to patient's pharmacy to be used as directed. Patient will monitor left wrist very closely and will return to ED with any fevers or worsening of swelling or redness or pain for re-evaluation. Referrals: NO PRIMARY CARE PROVIDER (PCP) Prescriptions ONDANSETRON ODT 4mg tablet (ONDANSETRON ODT) 4 Mg Tab.rapdis 4 MG PO BID for 7 Days, #14 TAB Prov: DILMA MORALES 09/12/24 Ibuprofen (Ibuprofen) 600 Mg Tablet 1 TAB PO Q8H for pain for 10 Days, #30 TAB 0 Refills with food Prov: DILMA MORALES 09/12/24 Hydrocodone Bit/Acetaminophen 5/325 MG ([place] 5/325 MG) 5 Mg/325 Mg Tablet 1 TAB PO Q12H PRN PRN for pain for 5 Days, #10 TAB Prov: DILMA MORALES 09/12/24 Clindamycin HCl (Clindamycin HCl) 300 Mg Capsule 1 CAP PO Q8H for 10 Days, #30 CAP Prov: DILMA MORALES 09/12/24 Signature Scribe Signature: No scribe Attestation: No scribe DILMA MORALES September 12, 2024 15:18
[2024-09-12 15:43] LABS: BASOPHILS # (AUTO) 0.1 X10'3 (0-0.2); BASOPHILS % (AUTO) 0.8 % (0-1); EOSINOPHILS # (AUTO) 0.3 X10'3 (0-0.9); HEMATOCRIT 38.1 % (35.0-45.0); HEMOGLOBIN 12.2 g/dl (12.0-16.0); LYMPHOCYTES # (AUTO) 1.7 X10'3 (1.1-4.8); LYMPHOCYTES % (AUTO) 14.9 % (21-51); MEAN CORPUSCULAR HGB CONC 32.1 g/dL (33.0-36.5); MEAN CORPUSCULAR VOLUME 74.8 FL (78-98); MEAN PLATELET VOLUME 7.4 FL (7.4-10.4); MONOCYTES # (AUTO) 1.1 X10'3 (0-0.9); MONOCYTES % (AUTO) 9.4 % (2-12); NEUTROPHILS # (AUTO) 8.1 X10'3 (1.8-7.7); NEUTROPHILS % (AUTO) 71.9 % (42-75); PLATELET COUNT 315 X10'3 (140-440); RED BLOOD COUNT 5.09 X10'6 (4.20-5.60); RED CELL DISTRIBUTION WIDTH 16.5 % (11.5-14.5); WHITE BLOOD COUNT 11.2 X10'3 (4.5-11.0)
[2024-09-12] MEDS: clindamycin 150mg capsule PO STA (15:43)
[2024-09-12] MEDS: indomethacin 25mg capsule PO STA (15:43)
[2024-09-12 15:55] LABS: ALBUMIN 3.6 G/DL (3.4-5.0); ANION GAP 9 (8-16); BLOOD UREA NITROGEN 11 MG/DL (7-18); BUN/CREATININE RATIO 17.5 (10.0-20.0); CALCIUM 8.8 MG/DL (8.5-10.1); CHLORIDE 104 MMOL/L (99-107); CREATININE 0.63 MG/DL (0.40-0.90); GLUCOSE 94 MG/DL (70-104); SODIUM 138 MMOL/L (135-145); TOTAL CARBON DIOXIDE 25.5 MMOL/L (24-32); URIC ACID 3.9 MG/DL (2.5-6.2); eCRCL 66 ML/MIN; eGFR > 90 ML/MIN
[2024-09-12 16:37] LABS: POTASSIUM 4.1 MMOL/L (3.5-5.1)
[2024-09-12] MEDS: ondansetron 4mg rapidly disintigrating tab PO STA (16:50)
[2024-09-12] MEDS ORDERED: CLIN300C71 PO (17:22)
[2024-09-12] MEDS ORDERED: IBUP-1985 PO (17:22)
[2024-09-12] MEDS ORDERED: HYDR-3965 PO (17:22)
[2024-09-12] MEDS ORDERED: ONDA-243 PO (17:33)
[2024-09-12 17:44] VITALS: BP 143/101; PULSE 118; RESP 18; O2SAT 93
== END 2024-09-12 17:45 | disposition home or self-care (01) ==
LOC: ER 12:39
DX: L03.114 Cellulitis of left upper limb (principal); E78.00 Pure hypercholesterolemia, unspecified; I10 Essential (primary) hypertension; J44.9 Chronic obstructive pulmonary disease, unspecified; Z88.0 Allergy status to penicillin; Z88.2 Allergy status to sulfonamides; Z88.5 Allergy status to narcotic agent; Z88.8 Allergy status to other drugs, medicaments and biological substances
CPT/HCPCS: 36415; 80048; 84550; 85025; 99284